=== PATIENT | male | born 1990 | race African-American/Black ===

== ENCOUNTER 2016-08-25 09:41 | Emergency (ER) | payer MEDICARE, OTHER ==
[2016-08-25 09:47] VITALS: BP 121/75; PULSE 72; TEMP 98.5; BMI 33.0
--- NOTE | 2016-08-25 10:01 | PDOC ---
History of Present Illness - General Chief Complaint: Asthma Stated Complaint: ASTHMA ATTACK Time Seen by Provider: 08/25/16 09:42 History Source: Patient Exam Limitations: No Limitations - History of Present Illness Initial Comments: 08/25/16 09:56 26-year-old male with past medical history of asthma presents to the emergency department with anxiety and asthma. The patient reports that he was well in his usual state of health. As he was driving dropped his pants off at work, patient was [place] on [address] when he felt anxious and what he felt was wheezing. He had stopped alongside the road and uses albuterol pump which made him feel better. He called 911 and the patient was brought to the ER for further management. Patient reports that he feels better now. He was unsure if this was secondary to anxiety or this was his asthma. However, he is no longer anxious and feels well. Denies recent illnesses, fevers, chills, cough, vomiting. Denies chest pain or shortness of breath. Past History - Past Medical History Allergies/Adverse Reactions: Allergies Allergy/AdvReac Type Severity Reaction Status Date / Time No Known Allergies Allergy Verified 08/25/16 09:43 Home Medications: Ambulatory Orders Budesonide/Formeterol Fumarate [SYMBICORT 160/4.5mcg -] 1 inh PO BID 08/25/16 Asthma: Yes - Psycho/Social/Smoking Cessation Hx Anxiety: No Suicidal Ideation: No Smoking History: Never smoked Information on smoking cessation initiated: No Hx Alcohol Use: No Drug/Substance Use Hx: No Substance Use Type: None Review of Systems - Review of Systems Able to Perform ROS?: Yes Comments:: 08/25/16 09:59 GENERAL/CONSTITUTIONAL: No fever, weakness. HEAD, EYES, EARS, NOSE AND THROAT: No change in vision. No ear pain or discharge. No sore throat. CARDIOVASCULAR: No chest pain or shortness of breath. RESPIRATORY: Wheezing GASTROINTESTINAL: No abdominal pain, nausea, vomiting, diarrhea, or decreased PO intolerance. GENITOURINARY: No dysuria, frequency, or change in urination. MUSCULOSKELETAL: No joint or muscle swelling or pain. No neck or back pain. SKIN: No rash NEUROLOGIC: No headache, vertigo, loss of consciousness, or change in strength/ sensation. ENDOCRINE: No increased thirst. No abnormal weight change. HEMATOLOGIC/LYMPHATIC: No anemia, easy bleeding, or history of blood clots. ALLERGIC/IMMUNOLOGIC: No hives or skin allergy. *Physical Exam - Vital Signs Last Vital Signs Temp Pulse Resp BP Pulse Ox 98.5 F 72 18 121/75 98 08/25/16 09:45 08/25/16 09:45 08/25/16 09:45 08/25/16 09:45 08/25/16 09:45 - Physical Exam Comments: 08/25/16 09:59 GENERAL: Awake, alert, and fully oriented, in no acute distress. HEAD: No signs of trauma EYES: PERRLA, EOMI, sclera anicteric, conjunctiva clear ENT: Auricles normal inspection, hearing grossly normal, nares patent, oropharynx clear without exudates. NECK: Normal ROM, supple, no lymphadenopathy, JVD, or masses LUNGS: Breath sounds equal, clear to auscultation bilaterally. No wheezes, and no crackles HEART: Regular rate and rhythm, normal S1 and S2, no murmurs, rubs or gallops ABDOMEN: Soft, nontender, normoactive bowel sounds. No guarding, no rebound. No masses EXTREMITIES: Normal range of motion, no edema. No clubbing or cyanosis. No cords, erythema, or tenderness NEUROLOGICAL: Cranial nerves II through XII grossly intact. Normal speech, normal gait SKIN: Warm, Dry, normal turgor, no rashes or lesions noted. Medical Decision Making - Medical Decision Making 08/25/16 09:59 I suspect the patient likely had a minor panic attack. His lungs are clear. He feels well now this moment. No need for further medical intervention. We'll allow the patient to go home and follow with his primary care physician. I discussed the physical exam findings, ancillary test results and final diagnoses with the patient. I answered all of the patient's questions. The patient was satisfied with the care received and felt comfortable with the discharge plan and treatment plan. The patient will call their primary care physician within 24 hours to arrange follow-up and will return to the Emergency Department with any new, persistant or worsening symptoms. *DC/Admit/Observation/Transfer Diagnosis at time of Disposition: Panic attack Asthma Qualifiers: Asthma severity: unspecified severity Asthma complication type: uncomplicated Qualified Code(s): J45.909 - Unspecified asthma, uncomplicated - Discharge Dispostion Disposition: HOME Condition at time of disposition: Stable Admit: No - Patient Instructions Printed Discharge Instructions: Asthma -- Adult Additional Instructions: At this moment, your lungs are clear. You may take 2 puffs of albuterol every 4 hours as needed for wheezing. Please follow-up with your doctor.
== END 2016-08-25 10:29 | disposition home or self-care (01) ==
LOC: FER 09:41
DX: F41.0 Panic disorder [episodic paroxysmal anxiety] (principal); J45.909 Unspecified asthma, uncomplicated
CPT/HCPCS: 99281-25

== ENCOUNTER 2020-06-07 19:59 | Emergency (ER) | payer MEDICARE, OTHER ==
[2020-06-07 20:18] VITALS: BP 127/68; PULSE 70; TEMP 98.3; BMI 24.4
== END 2020-06-07 21:16 | disposition home or self-care (01) ==
LOC: JER 19:59 → JERFT 19:59
DX: T55.1X1A Toxic effect of detergents, accidental (unintentional), initial encounter (principal)
CPT/HCPCS: 99282-25

== ENCOUNTER 2020-08-10 22:39 | Emergency (ER) | payer MEDICARE, OTHER ==
[2020-08-10 22:44] VITALS: BP 122/78; PULSE 65; TEMP 97; BMI 25.0
[2020-08-10 23:50] LABS: BASO % 0.8 % (0-2.0); EOS % 2.3 % (0-4.5); HEMATOCRIT 46.1 % (35.4-49); HEMOGLOBIN 15.5 GM/dL (11.7-16.9); LYMPH % 54.3 % (8-40); MCH 29.4 pg (25.7-33.7); MCHC 33.6 g/dl (32.0-35.9); MEAN CELL VOLUME 87.7 fl (80-96); MEAN PLT VOLUME 10.1 fl (7.5-11.1); MONO % 5.9 % (3.8-10.2); NEUT % 36.7 % (42.8-82.8); PLATELET COUNT 193 K/MM3 (134-434); RBC 5.26 M/mm3 (4.00-5.60); WHITE BLOOD COUNT 5.7 K/mm3 (4.0-10.0)
[2020-08-11 00:06] LABS: CHLORIDE 108 mmol/L (98-107); POTASSIUM 3.9 mmol/L (3.5-5.1); SODIUM 143 mmol/L (136-145)
[2020-08-11 00:09] LABS: CALCIUM 9.7 mg/dL (8.5-10.1)
[2020-08-11 00:10] LABS: ANION GAP 7 MMOL/L (8-16); CO2 28 mmol/L (21-32); GLUCOSE,RANDOM 129 mg/dL (74-106)
[2020-08-11 00:13] LABS: CREATININE 1.2 mg/dL (0.55-1.3); SGOT/AST 22 U/L (15-37)
[2020-08-11 00:14] LABS: BILIRUBIN,TOTAL 0.6 mg/dL (0.2-1); TOT PROT 6.9 g/dl (6.4-8.2)
[2020-08-11 00:16] LABS: ALK PHOS 103 U/L (45-117)
[2020-08-11 00:18] LABS: SGPT/ALT 32 U/L (13-61)
== END 2020-08-11 01:02 | disposition home or self-care (01) ==
LOC: JER 22:39
DX: R07.9 Chest pain, unspecified (principal)
CPT/HCPCS: 36415; 80053; 84484; 85025; 93005; 93010; 99284-25

== ENCOUNTER 2020-08-19 20:22 | Emergency (ER) | payer MEDICARE, OTHER ==
[2020-08-19 20:36] VITALS: TEMP 98.3; BMI 25.7
[2020-08-19] MEDS ORDERED: LIDOCAINE PATCH REMOVAL MC SCH (22:00)
[2020-08-19 22:13] LABS: BASO % 1.9 % (0-2.0); EOS % 2.3 % (0-4.5); HEMOGLOBIN 15.3 GM/dL (11.7-16.9); LYMPH % 48.9 % (8-40); MCH 29.4 pg (25.7-33.7); MCHC 33.3 g/dl (32.0-35.9); MEAN CELL VOLUME 88.1 fl (80-96); MONO % 6.8 % (3.8-10.2); NEUT % 40.1 % (42.8-82.8); PLATELET COUNT 226 K/MM3 (134-434); RBC 5.22 M/mm3 (4.00-5.60); RDW 13.6 % (11.9-15.9)
[2020-08-19 22:25] LABS: CHLORIDE 106 mmol/L (98-107); POTASSIUM 3.9 mmol/L (3.5-5.1); SODIUM 142 mmol/L (136-145)
[2020-08-19 22:27] LABS: CALCIUM 9.4 mg/dL (8.5-10.1)
[2020-08-19 22:28] LABS: ANION GAP 6 MMOL/L (8-16); BLOOD UREA NITROGEN 19.7 mg/dL (7-18); CO2 30 mmol/L (21-32); GLUCOSE,RANDOM 101 mg/dL (74-106)
[2020-08-19 22:31] LABS: CREATININE 1.5 mg/dL (0.55-1.3); SGOT/AST 19 U/L (15-37); SGPT/ALT 34 U/L (13-61)
[2020-08-19 22:32] LABS: BILIRUBIN,TOTAL 0.4 mg/dL (0.2-1); TOT PROT 7.1 g/dl (6.4-8.2)
[2020-08-19 22:34] LABS: ALK PHOS 99 U/L (45-117)
[2020-08-19 22:41] LABS: ANISOCYTOSIS 0; MACROCYTOSIS 0; PLATELET ESTIMATE NORMAL
[2020-08-19] MEDS ORDERED: LIDOCAINE 5% TOPICAL PATCH TP ONE (23:01)
[2020-08-19] MEDS ORDERED: LIDOCAINE 5% TOPICAL PATCH ONE (23:09)
[2020-08-19 23:24] VITALS: BP 112/76; PULSE 72
== END 2020-08-19 23:24 | disposition home or self-care (01) ==
LOC: JER 20:22
DX: R07.9 Chest pain, unspecified (principal)
CPT/HCPCS: 36415; 71045-TC-FY; 71046-TC-FY; 80053; 84484; 85025; 93005; 93010; 99283-25

== ENCOUNTER 2020-09-09 20:41 | Emergency (ER) | payer MEDICARE, OTHER ==
[2020-09-09 21:00] VITALS: BP 109/72; PULSE 59; TEMP 98.4; BMI 24.4
== END 2020-09-09 21:20 | disposition home or self-care (01) ==
LOC: JER 20:41 → JERFT 20:41
DX: F41.9 Anxiety disorder, unspecified (principal)
CPT/HCPCS: 82962; 99283-25

== ENCOUNTER 2020-10-21 22:59 | Emergency (ER) | payer OTHER ==
[2020-10-21 23:23] VITALS: BP 103/68; PULSE 62; TEMP 98.5; BMI 24.4
[2020-10-21] MEDS ORDERED: ACETAMINOPHEN 325 MG TABLET (FP) PO ONE (23:55)
[2020-10-22] MEDS ORDERED: ACETAMINOPHEN 325 MG TABLET (FP) ONE (00:07)
[2020-10-22] MEDS ORDERED: LIDOCAINE 5% TOPICAL PATCH TP ONE (00:14)
[2020-10-22] MEDS ORDERED: METHOCARBAMOL 500 MG TABLET PO ONE (00:14)
[2020-10-22] MEDS ORDERED: LIDOCAINE 5% TOPICAL PATCH ONE (00:19)
[2020-10-22] MEDS ORDERED: METHOCARBAMOL 500 MG TABLET ONE (00:19)
[2020-10-22] MEDS ORDERED: LIDOCAINE PATCH REMOVAL MC ONE (12:00)
== END 2020-10-22 00:31 | disposition home or self-care (01) ==
LOC: JER 22:59
DX: M25.511 Pain in right shoulder (principal)
CPT/HCPCS: 93005; 93010; 99283-25

== ENCOUNTER 2020-10-27 11:03 | Emergency (ER) | payer OTHER ==
[2020-10-27 11:13] VITALS: BP 104/68; PULSE 63; TEMP 97.9; BMI 25.0
== END 2020-10-27 11:45 | disposition home or self-care (01) ==
LOC: JERFT 11:03
DX: L30.9 Dermatitis, unspecified (principal)
CPT/HCPCS: 99281-25

== ENCOUNTER 2020-11-09 23:23 | Emergency (ER) | payer OTHER ==
[2020-11-09 23:29] VITALS: BP 141/70; PULSE 68; TEMP 97; BMI 24.4
== END 2020-11-10 01:32 | disposition home or self-care (01) ==
LOC: JER 23:23
DX: R20.2 Paresthesia of skin (principal)
CPT/HCPCS: 99281-25

== ENCOUNTER 2020-11-24 11:22 | Emergency (ER) | payer OTHER ==
[2020-11-24 11:35] VITALS: BP 100/68; PULSE 78; TEMP 97.8; BMI 24.4
[2020-11-24 16:28] LABS: CALCIUM 8.9 mg/dL (8.5-10.1)
[2020-11-24 16:29] LABS: BLOOD UREA NITROGEN 15.3 mg/dL (7-18)
[2020-11-24 16:32] LABS: CREATININE 1.1 mg/dL (0.55-1.3)
== END 2020-11-24 13:31 | disposition home or self-care (01) ==
LOC: JERFT 11:22 → JER 11:22
DX: R20.9 Unspecified disturbances of skin sensation (principal)
CPT/HCPCS: 36415; 80048; 82306; 82607; 99283-25

== ENCOUNTER 2020-12-22 14:33 | Emergency (ER) | payer OTHER ==
[2020-12-22 14:42] VITALS: BP 112/69; PULSE 60; TEMP 98.5; BMI 25.0
== END 2020-12-22 16:10 | disposition home or self-care (01) ==
LOC: JER 14:33
DX: R20.2 Paresthesia of skin (principal)
CPT/HCPCS: 82962; 83036; 99283-25